=== PATIENT | female | born 1950 | race Caucasian/White ===

== ENCOUNTER 2019-03-16 02:40 | Inpatient (IN) | payer MEDICARE, OTHER ==
[2019-03-16] VITALS (10 sets, daily range): BP systolic 112–146; BP diastolic 60–92
[~2019-03-16] VITALS: Ht 167.6 cm; Wt 91.5 kg
[2019-03-16] MEDS ORDERED: STEMI BOX INJ NR (03:15)
[2019-03-16 03:17] LABS: EOSINOPHILS # (AUTO) 0.1 X10'3 (0-0.9); MEAN PLATELET VOLUME 11.2 FL (7.4-10.4); MONOCYTES # (AUTO) 0.7 X10'3 (0-0.9); MONOCYTES % (AUTO) 5.2 % (2-12); WHITE BLOOD COUNT 12.5 X10'3 (4.5-11.0)
[2019-03-16 03:19] LABS: BASOPHILS % (AUTO) 0.3 % (0-1); EOSINOPHILS % (AUTO) 0.6 % (0-6); HEMATOCRIT 44.3 % (35.0-45.0); HEMOGLOBIN 15.3 g/dl (12.0-16.0); LYMPHOCYTES # (AUTO) 3.1 X10'3 (1.1-4.8); LYMPHOCYTES % (AUTO) 24.4 % (21-51); MEAN CORPUSCULAR HEMOGLOBIN 30.4 PG (27.0-31.0); MEAN CORPUSCULAR HGB CONC 34.6 g/dL (33.0-36.5); MEAN CORPUSCULAR VOLUME 87.9 FL (78-98); NEUTROPHILS # (AUTO) 8.7 X10'3 (1.8-7.7); NEUTROPHILS % (AUTO) 69.5 % (42-75); PLATELET COUNT 253 X10'3 (140-440); RED BLOOD COUNT 5.04 X10'6 (4.20-5.60); RED CELL DISTRIBUTION WIDTH 14.1 % (11.5-14.5)
[2019-03-16] MEDS ORDERED: heparin 25,000 UNIT/250ml bag 250 ML IV SCH (03:28)
[2019-03-16 03:30] LABS: ALBUMIN 3.7 G/DL (3.4-5.0); ANION GAP 12 (8-16); BILIRUBIN,TOTAL 0.5 MG/DL (0.1-1.0); BLOOD UREA NITROGEN 12 MG/DL (7-18); BUN/CREATININE RATIO 12.8 (6.6-38.0); CALCIUM 9.9 MG/DL (8.5-10.1); CHLORIDE 97 MMOL/L (99-107); CREATININE 0.94 MG/DL (0.40-0.90); GLUCOSE 258 MG/DL (70-104); PARTIAL THROMBOPLASTIN TIME 54 SECONDS (22-32); POTASSIUM 3.4 MMOL/L (3.5-5.1); SODIUM 135 MMOL/L (135-145); TOTAL CARBON DIOXIDE 26.3 MMOL/L (24-32); TOTAL PROTEIN 8.6 G/DL (6.4-8.2); eGFR 60 ML/MIN
[2019-03-16] MEDS ORDERED: nitroGLYCERIN-Tridil 50MG/D5W 250 ML IV ONE (03:30)
[2019-03-16] MEDS ORDERED: heparin 10,000 units/1 ML INJ IV ONE ×2 (03:30→04:00)
[2019-03-16] MEDS ORDERED: heparin 10,000 units/1 ML INJ IV PRN ×2 (03:30→04:00)
[2019-03-16 03:31] LABS: ALANINE AMINOTRANSFERASE 80 U/L (12-78); ALBUMIN/GLOBULIN RATIO 0.8 (1.1-1.5); ALKALINE PHOSPHATASE 119 IU/L (46-116); ASPARTATE AMINO TRANSFERASE 42 U/L (10-37)
--- NOTE | 2019-03-16 03:34 | NUR ---
NON ADMIN OF HEPARIN BOLUS DUE TO PT RECEIVING AT [facility] BEFORE ARRIVAL.
[2019-03-16 03:40] LABS: TROPONIN I 0.94 NG/ML (0.0-0.05)
[2019-03-16 03:43] LABS: LARGE PLATELETS MODERATE; PLATELET ESTIMATE NORMAL
[2019-03-16] MEDS: heparin 25,000 UNIT/250ml bag 250 ML IV SCH ×2 (03:59→10:50)
[2019-03-16] MEDS ORDERED: magnesium 4gm in 100ml NS 100 ML IV PRN ×2 (04:00→07:10)
[2019-03-16] MEDS ORDERED: magnesium hydroxide 30ml (MOM) UD suspension PO PRN (04:00)
[2019-03-16] MEDS ORDERED: magnesium Cl slow-release 64mg tablet PO PRN ×2 (04:00→07:10)
[2019-03-16] MEDS ORDERED: ondansetron/PF 4mg/2ml inj IV PRN ×2 (04:00→14:00)
[2019-03-16] MEDS ORDERED: potassium Cl 20 mEq SR tablet PO PRN ×3 (04:00→07:10)
[2019-03-16] MEDS ORDERED: acetaminophen 325mg tablet PO PRN (04:00)
[2019-03-16] MEDS ORDERED: potassium CL 10mEq/100ml bag 100 ML IV PRN ×3 (04:00→07:10)
[2019-03-16] MEDS ORDERED: mag hydrox/Alum hydrox/simeth 30ml oral suspension PO PRN (04:00)
[2019-03-16] MEDS ORDERED: magnesium 2GM in 50ml NS 50 ML IV PRN (04:00)
[2019-03-16] MEDS ORDERED: glucagon, human recombinant 1mg kit SUBCUT PRN ×2 (04:30→14:40)
[2019-03-16] MEDS ORDERED: insulin Lispro (HumaLOG) vial - multi-dose SQ SCH ×2 (04:30→14:40)
[2019-03-16] MEDS ORDERED: dextrose 50%-water 50ml dispensing syringe IV PRN ×5 (04:30→14:40)
[2019-03-16] MEDS ORDERED: MESSAGE TO PHARMACY PO ONE ×2 (04:30→14:40)
[2019-03-16] MEDS ORDERED: dextrose ORAL solution 15 GM/59 ML bottle PO PRN ×4 (04:30→14:40)
--- NOTE | 2019-03-16 04:30 | NUR ---
Patient in room PCU 3013. I have received report from Yazmin SARABIA and had the opportunity to ask questions and assume patient care.
--- NOTE | 2019-03-16 04:45 | NUR ---
Patient arrived to room 3013B from the ER via gurney with at bedside and all belongings on person. Patient oriented to call light, room, plan of care and all questions answered. Nitro gtt @ 5mcg/hr, and Heparin gtt at 1000units/hr. Patient currently chest pain free at the moment. Vital signs stable and tele monitor put on. Will continue to monitor.
--- NOTE | 2019-03-16 06:05 | NUR ---
Problems reprioritized. Patient report given, questions answered & plan of care reviewed with Sherri SARABIA.
--- NOTE | 2019-03-16 06:35 | NUR ---
Patient in room PCU 3013. I have received report from Tess SARABIA and had the opportunity to ask questions and assume patient care. Heparin gtt running at 1,000 u/hr and Nitro gtt running at 5 mcg with BP 115/74, pt denies chest pain at this time. Will continue to monitor.
[2019-03-16] MEDS ORDERED: nitroGLYCERIN 0.4mg/hour patch TD ONE (06:50)
[2019-03-16 07:06] LABS: HEMOGLOBIN A1C 8.5 % (4.5-6.2)
[2019-03-16 07:09] LABS: CHOLESTEROL 256 MG/DL (0-200); HDL CHOLESTEROL 35 MG/DL (35-60)
[2019-03-16 07:10] LABS: CHOL/HDL RATIO 7.3 (0.00-4.99); LDL CHOLESTEROL 179 MG/DL (50-100); TRIGLYCERIDES 281 MG/DL (20-135)
--- NOTE | 2019-03-16 07:25 | NUR ---
PAGER ID: [phone] MESSAGE: [id number] Alejandro Amin Pt 3hr trop is 2.22 up from 0.94, Heparin gtt running, Candice Vega CYLINDER TESTER is aware. Thank you, Sherri [phone]
[2019-03-16] MEDS ORDERED: papaverine 30 mg/ml 2ml inj. ONE (08:00)
[2019-03-16] MEDS ORDERED: K and/or MAG REPLACEMENT MC SCH (08:00)
[2019-03-16] MEDS ORDERED: aspirin 81mg tab.chew PO SCH (08:30)
[2019-03-16] MEDS: tirofiban 5mg in NS 100mL 100 ML IV SCH ×2 (08:35→11:40)
[2019-03-16] MEDS: metoprolol tartrate 12.5mg (1/2 tablet) PO SCH ×2 (08:38→23:33)
[2019-03-16] MEDS: potassium Cl 20 mEq SR tablet PO PRN ×2 (08:39→18:09)
[2019-03-16] MEDS ORDERED: NOVRI SQ (10:07)
[2019-03-16] MEDS ORDERED: NPH,100V2 SQ ×2 (10:08→10:10)
[2019-03-16] MEDS ORDERED: HYDR25TA4 PO (10:10)
[2019-03-16] MEDS ORDERED: AMIT-189 PO (10:11)
[2019-03-16] MEDS ORDERED: AMLO2.5T2 PO (10:11)
[2019-03-16] MEDS ORDERED: METF500T PO (10:12)
[2019-03-16] MEDS ORDERED: GLIM4TAB4 PO (10:12)
[2019-03-16 10:25] LABS: MAGNESIUM 1.9 MG/DL (1.5-2.4)
--- NOTE | 2019-03-16 10:32 | NUR ---
PAGER ID: [phone] MESSAGE: [id number] Alejandro Amin Pt 6hour trop is now 3.26 up from 2.22. Thank you, Sherri #[phone]
[2019-03-16] MEDS: normal saline 1000ml 1,000 ML IV SCH ×3 (11:54→23:53)
[2019-03-16] MEDS ORDERED: midazolam 2 mg/2 ml injection ONE (12:33)
[2019-03-16] MEDS ORDERED: iohexol 350MG/ML 100ml bottle IV ONE (12:33)
[2019-03-16] MEDS ORDERED: LIDOcaine 1% (10mg/ml)w/preservative injection 20ml MDV ONE (12:33)
[2019-03-16] MEDS ORDERED: fentaNYL/PF 50MCG/1 ML 2ML syringe ONE (12:33)
--- NOTE | 2019-03-16 13:03 | NUR ---
pt transferred to Sales Development Director with [facility]
--- NOTE | 2019-03-16 13:45 | NUR ---
PT. RETURNED FROM [facility]. REPORT RECEIVED. PT. IS COMFORTABLY LAYING FLAT IN BED. VS OBTAINED AND ARE STABLE. DRESSING ON R FEMORAL ARTERY IS CLEAN, DRY, INTACT. SKIN AROUND SITE IS SOFT AND COLORATION IS NORMAL.
[2019-03-16] MEDS ORDERED: HYDROcodone/acetaminophen 5mg/325mg tablet PO PRN ×2 (14:00→14:15)
[2019-03-16] MEDS ORDERED: OXAZEpam 15mg capsule PO PRN (14:00)
[2019-03-16] MEDS ORDERED: HYDROcodone/acetaminophen 10/325mg tab PO PRN (14:15)
[2019-03-16] MEDS ORDERED: proCHLORperazine 10 MG/2 ml inj IV PRN (14:15)
[2019-03-16] MEDS ORDERED: insulin glargine (Lantus) pen - multi-dose SQ PRN (14:40)
[2019-03-16] MEDS ORDERED: MESSAGE TO NURSING PO ONE ×4 (14:40)
[2019-03-16] MEDS ORDERED: ringers solution, lacted 1,000 ML IV ONE (14:58)
--- NOTE | 2019-03-16 16:18 | NUR ---
DM consult: Pt with A1c 8.5 seen at bedside with SO present. Pt reports seeing an MD q 1 month or q 6 months, takes her meds per rx, and checks her BG levels in the morning with resulting numbers 85-130. Pt reports her biggest obstacle is monitoring CHO intake. Pt reports usual PO intake is two meals/day. Pt provided with written and verbal DM ed with referral to outpatient DM class. Noted that pt with elevated lipid panel with TG 281, CHOL 256, LDL 179, HDL WNL. Pt provided with written and verbal heart healthy education and RD contact information. Pt reports she's pending 4 way stenting. Pt provided with verbal protein and wound healing education. Will follow up post-op and monitor need for written education and additional protein. Pt denies any food allergies, difficulty chewing/swallowing, or constipation/diarrhea. LBM 03/15. Will continue to follow. Recommendations: 1) Continues heart healthy CHO controlled diet 2) Monitor need for f/u written protein education and ONS post-op 3) Antihyperlipidemic per MD approval given elevated lipid panel 4) Wt per rx Addendum: 03/16/19 at [address] Amended: Links added.
[2019-03-16 16:26] LABS: EOSINOPHILS # (AUTO) 0.2 X10'3 (0-0.9); EOSINOPHILS % (AUTO) 1.7 % (0-6); HEMOGLOBIN 14.4 g/dl (12.0-16.0); MEAN CORPUSCULAR HEMOGLOBIN 30.6 PG (27.0-31.0); MONOCYTES # (AUTO) 0.7 X10'3 (0-0.9)
[2019-03-16 16:27] LABS: BASOPHILS % (AUTO) 0.3 % (0-1); HEMATOCRIT 42.6 % (35.0-45.0); LYMPHOCYTES # (AUTO) 3.7 X10'3 (1.1-4.8); LYMPHOCYTES % (AUTO) 37.7 % (21-51); MEAN CORPUSCULAR HGB CONC 33.8 g/dL (33.0-36.5); MEAN CORPUSCULAR VOLUME 90.5 FL (78-98); MEAN PLATELET VOLUME 11.7 FL (7.4-10.4); MONOCYTES % (AUTO) 6.7 % (2-12); NEUTROPHILS # (AUTO) 5.3 X10'3 (1.8-7.7); NEUTROPHILS % (AUTO) 53.6 % (42-75); PLATELET COUNT 241 X10'3 (140-440); RED BLOOD COUNT 4.71 X10'6 (4.20-5.60); WHITE BLOOD COUNT 9.9 X10'3 (4.5-11.0)
[2019-03-16 16:42] LABS: ALBUMIN 3.4 G/DL (3.4-5.0); ANION GAP 8 (8-16); BLOOD UREA NITROGEN 13 MG/DL (7-18); BUN/CREATININE RATIO 16.5 (6.6-38.0); CALCIUM 9.2 MG/DL (8.5-10.1); CHLORIDE 100 MMOL/L (99-107); CHOL/HDL RATIO 7.8 (0.00-4.99); CHOLESTEROL 257 MG/DL (0-200); CREATINE KINASE 166 U/L (26-192); CREATININE 0.79 MG/DL (0.40-0.90); GLUCOSE 168 MG/DL (70-104); HDL CHOLESTEROL 33 MG/DL (35-60); LDL CHOLESTEROL 173 MG/DL (50-100); POTASSIUM 3.1 MMOL/L (3.5-5.1); SODIUM 136 MMOL/L (135-145); TOTAL CARBON DIOXIDE 28.2 MMOL/L (24-32); TRIGLYCERIDES 372 MG/DL (20-135); eGFR 73 ML/MIN
--- NOTE | 2019-03-16 16:50 | NUR ---
PAGER ID: [phone] MESSAGE: [id number] Alejandro Amin Critical 12hour troponin of 4.83. Pricilla has consulted, CABG tomorrow. Thank you, Sherri#[phone]
--- NOTE | 2019-03-16 18:41 | NUR ---
Problems reprioritized. Patient report given, questions answered & plan of care reviewed with Lulu SARABIA.
--- NOTE | 2019-03-16 18:58 | NUR ---
Patient in room U 3013. I have received report from David Small's and had the opportunity to ask questions and assume patient care. Addendum: 03/16/19 at 1859 by Lulu Gilmore RN Amended: Links added.
[2019-03-16] MEDS ORDERED: metoprolol tartrate 12.5mg (1/2 tablet) PO SCH (20:00)
[2019-03-16] MEDS ORDERED: mupirocin 2% nasal ointment 1gm UD NS SCH (20:00)
[2019-03-16 20:36] LABS: ABG BASE EXCESS 1.4 mmol/L (-2.0-3.0); ABG HCO3 25.4 mmol/L (22.0-26.0); ABG OXYGEN SATURATION 93.8 % (95-98); ABG PCO2 (T) 38.4 mmHg (32.0-45.0); ABG PH (T) 7.439 (7.350-7.450); ABG PO2 (T) 68.6 mmHg (83-108); ALLEN'S TEST Positive; FCOHb 0.7 % (0.5-1.5); FMetHb 0.2 % (0.3-1.12); TOTAL HEMOGLOBIN 15.2 G/dl (12.0-16.0)
[2019-03-16] MEDS ORDERED: pravastatin 10mg tablet PO SCH (21:00)
[2019-03-16] MEDS ORDERED: pravastatin 40mg tablet PO SCH (21:00)
[2019-03-16] MEDS ORDERED: insulin glargine (Lantus) pen - multi-dose SQ SCH ×2 (21:00)
--- NOTE | 2019-03-16 21:00 | NUR ---
Patient in room MED 311. I have received report from Brandy RN PCU Unit and had the opportunity to ask questions and assume patient care.
--- NOTE | 2019-03-16 21:08 | NUR ---
Problems reprioritized. Patient report given, questions answered & plan of care reviewed with Herminia Small. Addendum: 03/16/19 at 2109 by Lulu Gilmore RN Amended: Links added.
--- NOTE | 2019-03-16 21:21 | NUR ---
Juany Small took pt overv to 311 with her meds to be given. report already called to Herminia Small and pt arrived to 311 at this time with her meds and belongings.
[2019-03-16] MEDS ORDERED: albuterol 2.5 MG/3 ML nebule NEB ONE (22:00)
[2019-03-17] VITALS (16 sets, daily range): BP systolic 93–165; BP diastolic 46–82
[2019-03-17] MEDS ORDERED: ROPIVAcaine 0.5% (5mg/ml) 30ml vial ONE (05:32)
[2019-03-17 05:36] LABS: ALANINE AMINOTRANSFERASE 63 U/L (12-78); ALBUMIN 3.3 G/DL (3.4-5.0); ALBUMIN/GLOBULIN RATIO 0.8 (1.1-1.5); ALKALINE PHOSPHATASE 99 IU/L (46-116); ANION GAP 11 (8-16); ASPARTATE AMINO TRANSFERASE 45 U/L (10-37); BILIRUBIN,TOTAL 0.6 MG/DL (0.1-1.0); BLOOD UREA NITROGEN 12 MG/DL (7-18); BUN/CREATININE RATIO 14.8 (6.6-38.0); CHLORIDE 102 MMOL/L (99-107); CREATININE 0.81 MG/DL (0.40-0.90); GLUCOSE 223 MG/DL (70-104); MAGNESIUM 1.9 MG/DL (1.5-2.4); POTASSIUM 3.4 MMOL/L (3.5-5.1); SODIUM 138 MMOL/L (135-145); TOTAL CARBON DIOXIDE 25.3 MMOL/L (24-32); TOTAL PROTEIN 7.5 G/DL (6.4-8.2); eGFR 71 ML/MIN
[2019-03-17 05:45] LABS: BASOPHILS # (AUTO) 0.1 X10'3 (0-0.2); EOSINOPHILS # (AUTO) 0.2 X10'3 (0-0.9); EOSINOPHILS % (AUTO) 2.3 % (0-6); HEMOGLOBIN 13.8 g/dl (12.0-16.0); LYMPHOCYTES # (AUTO) 2.7 X10'3 (1.1-4.8); LYMPHOCYTES % (AUTO) 29.4 % (21-51); MEAN CORPUSCULAR HEMOGLOBIN 30.6 PG (27.0-31.0); MEAN CORPUSCULAR HGB CONC 33.6 g/dL (33.0-36.5); MEAN PLATELET VOLUME 11.5 FL (7.4-10.4); MONOCYTES # (AUTO) 0.7 X10'3 (0-0.9); MONOCYTES % (AUTO) 7.2 % (2-12); NEUTROPHILS # (AUTO) 5.6 X10'3 (1.8-7.7); NEUTROPHILS % (AUTO) 60.1 % (42-75); PLATELET COUNT 197 X10'3 (140-440); RED CELL DISTRIBUTION WIDTH 14.2 % (11.5-14.5); WHITE BLOOD COUNT 9.3 X10'3 (4.5-11.0)
[2019-03-17] MEDS ORDERED: papaverine 30 mg/ml 2ml inj. IA ONE (06:00)
[2019-03-17] MEDS ORDERED: famotidine 20mg tablet PO ONE (06:00)
[2019-03-17] MEDS ORDERED: LORazepam 2 mg/ml vial IV ONE (06:00)
[2019-03-17] MEDS ORDERED: heparin 10,000 units/1 ML INJ IR ONE (06:00)
--- NOTE | 2019-03-17 06:40 | NUR ---
AIDAN FROM PRE OP INSTRUCTED RN TO GIVE 12.5 LOPRESSOR IF ORDERED FOR THIS MORNING AND APPROPRIATE
--- NOTE | 2019-03-17 06:45 | NUR ---
Report given to Concepcion SARABIA.
--- NOTE | 2019-03-17 06:50 | NUR ---
INSTRUCTED BY DR. DECKER TO GIVE 2 UNITS OF LISPRO FOR BLOOD GLUCOSE OF 207
[2019-03-17] MEDS: metoprolol tartrate 12.5mg (1/2 tablet) PO SCH (06:51)
[2019-03-17] MEDS ORDERED: GLIP10TA11 PO (06:55)
[2019-03-17] MEDS ORDERED: LOSA50TA64 PO (06:55)
[2019-03-17] MEDS ORDERED: protamine sulf. 10mg/ml inj. IV ONE (07:19)
[2019-03-17] MEDS ORDERED: DOPamine/D5W 400mg/250ml bag IV ONE (07:19)
[2019-03-17] MEDS ORDERED: nitroGLYCERIN in D5W 50mg/250ml (Tridil) infusion IV ONE (07:19)
[2019-03-17] MEDS ORDERED: isoflurane 100ml inhalation liquid IH ONE (07:19)
[2019-03-17] MEDS ORDERED: SUFENTANIL CITRATE 50 MCG/ML 2ml ampule IV ONE (07:21)
[2019-03-17] MEDS ORDERED: midazolam 2 mg/2 ml injection ONE (07:22)
[2019-03-17 07:41] LABS: LARGE PLATELETS FEW; PLATELET ESTIMATE NORMAL
[2019-03-17] MEDS ORDERED: insulin regular, human 100 UNIT in normal saline 100ml IV soln 100 ML IV SCH ×2 (08:00)
[2019-03-17] MEDS ORDERED: vancomycin/NS 1 GM ADD-VANTAGE 250 ML IV ONE (08:00)
[2019-03-17] MEDS ORDERED: cefazolin/dext.iso 2gm/100ml 100 ML IV ONE (08:00)
[2019-03-17] MEDS ORDERED: NUT.TX.IMPAIRED DIGEST FXN (Ensure Clear) 237 ML PO ONE (08:00)
[2019-03-17] MEDS ORDERED: gabapentin 400mg capsule PO ONE (08:00)
[2019-03-17 08:01] LABS: ABG BASE EXCESS 0.6 mmol/L (-2.0-3.0); ABG HCO3 23.4 mmol/L (22.0-26.0); ABG OXYGEN SATURATION 99.7 % (95-98); ABG PCO2 32.1 mmHg (35.0-45.0); ABG PO2 319.9 mmHg (60.0-100.0); CL (ABG) 101 mmol/L (99-107); FCOHb 0.9 % (0.5-1.5); FMetHb 0.4 % (0.3-1.12); FO2Hb 98.4 % (94-100); GLUCOSE (ABG) 237 mg/dl (70-105); IONIZED CA (ABG) 1.09 mmol/L (1.03-1.32); K (ABG) 3.4 mmol/L (3.3-5.1); NA (ABG) 135 mmol/L (135-145); TOTAL HEMOGLOBIN 13.2 G/dl (12.0-16.0)
[2019-03-17 08:46] LABS: ABG BASE EXCESS VENOUS -0.2 mmol/L; ABG HCO3 VENOUS 25.5 mmol/L; ABG PCO2 VENOUS 45.4 mmHg; ABG PO2 VENOUS 45.9 mmHg; CL (ABG) 99 mmol/L (99-107); FCOHb VENOUS 1.1 %; FHHb VENOUS 20.6 %; FMetHb VENOUS 0.3 %; GLUCOSE (ABG) 256 mg/dl (70-105); K (ABG) 3.5 mmol/L (3.3-5.1); NA (ABG) 135 mmol/L (135-145)
[2019-03-17 09:16] LABS: ABG BASE EXCESS -1.7 mmol/L (-2.0-3.0); ABG HCO3 22.7 mmol/L (22.0-26.0); ABG OXYGEN SATURATION 99.4 % (95-98); ABG PCO2 37.3 mmHg (35.0-45.0); ABG PH 7.403 (7.350-7.450); ABG PO2 423.8 mmHg (60.0-100.0); CL (ABG) 100 mmol/L (99-107); FCOHb 0.4 % (0.5-1.5); FMetHb 0.2 % (0.3-1.12); FO2Hb 98.8 % (94-100); GLUCOSE (ABG) 160 mg/dl (70-105); IONIZED CA (ABG) 0.98 mmol/L (1.03-1.32); K (ABG) 4.6 mmol/L (3.3-5.1); NA (ABG) 134 mmol/L (135-145); TOTAL HEMOGLOBIN 9.6 G/dl (12.0-16.0)
[2019-03-17 09:21] LABS: ABG BASE EXCESS VENOUS -1.4 mmol/L; ABG PCO2 VENOUS 43.1 mmHg; ABG PO2 VENOUS 52.2 mmHg; CL (ABG) 100 mmol/L (99-107); FCOHb VENOUS 1.2 %; FHHb VENOUS 14.6 %; FMetHb VENOUS 0.3 %; FO2Hb VENOUS 83.9 %; GLUCOSE (ABG) 156 mg/dl (70-105); IONIZED CA (ABG) 0.98 mmol/L (1.03-1.32); K (ABG) 4.1 mmol/L (3.3-5.1); NA (ABG) 134 mmol/L (135-145); TOTAL HEMOGLOBIN 9.3 G/dl (12.0-16.0)
[2019-03-17 09:40] LABS: ABG BASE EXCESS -0.2 mmol/L (-2.0-3.0); ABG HCO3 24.9 mmol/L (22.0-26.0); ABG OXYGEN SATURATION 99.7 % (95-98); ABG PCO2 42.5 mmHg (35.0-45.0); ABG PH 7.385 (7.350-7.450); ABG PO2 447.1 mmHg (60.0-100.0); CL (ABG) 101 mmol/L (99-107); FCOHb 1.1 % (0.5-1.5); FO2Hb 98.6 % (94-100); GLUCOSE (ABG) 124 mg/dl (70-105); IONIZED CA (ABG) 0.93 mmol/L (1.03-1.32); K (ABG) 4.2 mmol/L (3.3-5.1); NA (ABG) 133 mmol/L (135-145); TOTAL HEMOGLOBIN 8.6 G/dl (12.0-16.0)
[2019-03-17] MEDS ORDERED: MESSAGE TO NURSING PO ONE (10:00)
[2019-03-17 10:06] LABS: ABG HCO3 26.2 mmol/L (22.0-26.0); ABG OXYGEN SATURATION 99.2 % (95-98); ABG PCO2 38.9 mmHg (35.0-45.0); ABG PH 7.446 (7.350-7.450); CL (ABG) 99 mmol/L (99-107); FMetHb 0.8 % (0.3-1.12); FO2Hb 97.4 % (94-100); GLUCOSE (ABG) 85 mg/dl (70-105); IONIZED CA (ABG) 1.15 mmol/L (1.03-1.32); K (ABG) 4.4 mmol/L (3.3-5.1); NA (ABG) 131 mmol/L (135-145)
[2019-03-17] MEDS ORDERED: propofol inj 20 ML IV ONE (10:37)
[2019-03-17] MEDS ORDERED: acetaminophen 1,000mg/100ml IV 100 ML IV ONE (10:37)
[2019-03-17] MEDS ORDERED: phenylephrine 10mg/ml inj. ONE (10:37)
[2019-03-17] MEDS ORDERED: LIDOcaine 2% (20mg/ml) 5ml vial ONE (10:37)
[2019-03-17] MEDS ORDERED: etomidate 2mg/ml inj. ONE (10:37)
[2019-03-17] MEDS ORDERED: rocuronium 10mg/ml inj IV ONE (10:37)
[2019-03-17 10:50] LABS: ABG BASE EXCESS VENOUS 0.6 mmol/L; ABG HCO3 VENOUS 25.7 mmol/L; ABG PCO2 VENOUS 43.6 mmHg; ABG PO2 VENOUS 35.1 mmHg; CL (ABG) 101 mmol/L (99-107); FCOHb VENOUS 0.6 %; FHHb VENOUS 36.2 %; FMetHb VENOUS 0.6 %; FO2Hb VENOUS 62.6 %; GLUCOSE (ABG) 82 mg/dl (70-105); IONIZED CA (ABG) 1.12 mmol/L (1.03-1.32); K (ABG) 4.3 mmol/L (3.3-5.1); NA (ABG) 135 mmol/L (135-145); TOTAL HEMOGLOBIN 10.2 G/dl (12.0-16.0)
[2019-03-17] MEDS ORDERED: niCARDipine-NS 40mg/200ml IVPB 200 ML IV PRN (11:11)
[2019-03-17] MEDS ORDERED: sodium chloride 0.45% 1,000 ML IV SCH (11:11)
[2019-03-17] MEDS ORDERED: nitroGLYCERIN-Tridil 50MG/D5W 250 ML IV PRN (11:11)
[2019-03-17] MEDS ORDERED: DOPamine 400mg/D5W 250ml 250 ML IV PRN (11:11)
[2019-03-17] MEDS ORDERED: insulin regular, human inj. 100 UNITS in normal saline 100ml IV soln 100 ML IV SCH ×2 (11:15)
[2019-03-17] MEDS ORDERED: pantoprazole 40 MG vial IV ONE (11:15)
[2019-03-17] MEDS ORDERED: sodium phosphate inj. 30 MMOL in dextrose 5%-water 250 ML IV PRN (11:15)
[2019-03-17] MEDS ORDERED: morphine 4 MG/ML inj SYRINge IV PRN (11:15)
[2019-03-17] MEDS ORDERED: magnesium 2GM in 50ml NS 50 ML IV PRN (11:15)
[2019-03-17] MEDS ORDERED: potassium Cl 20 mEq SR tablet PO PRN (11:15)
[2019-03-17] MEDS ORDERED: normal saline 250ml IV soln 250 ML IV PRN (11:15)
[2019-03-17] MEDS ORDERED: albumin (Human) 5% 250ml 250 ML IV PRN (11:15)
[2019-03-17] MEDS ORDERED: dextrose 50%-water 50ml dispensing syringe IV PRN (11:15)
[2019-03-17] MEDS ORDERED: ondansetron/PF 4mg/2ml inj IV PRN (11:15)
[2019-03-17] MEDS ORDERED: Neutra Phos packet PO PRN (11:15)
[2019-03-17] MEDS ORDERED: acetaminophen 325mg tablet PO PRN (11:15)
[2019-03-17] MEDS ORDERED: metoclopramide 5 mg/ml inj IV PRN (11:15)
[2019-03-17] MEDS ORDERED: sodium phosphate inj. 15 MMOL in dextrose 5%-water 150 ML IV PRN (11:15)
[2019-03-17] MEDS ORDERED: HYDROcodone/acetaminophen 10/325mg tab PO PRN (11:15)
[2019-03-17] MEDS ORDERED: magnesium 4gm in 100ml NS 100 ML IV PRN (11:15)
[2019-03-17] MEDS: insulin regular, human 100 UNIT in normal saline 100ml IV soln 100 ML IV SCH ×2 (11:24)
[2019-03-17] MEDS ORDERED: ESOMEPRAZOLE 40 MG VIAL IV ONE (11:25)
--- NOTE | 2019-03-17 11:30 | NUR ---
Received to room [], accompanied by MDs [] and surgical crew. Placed on ventilator, to fence erector supervisor, arterial line and PA line pressure monitored. Chest tubes to suction at 20 cm. Laguna cath to gravity drainage. Dressings are dry and intact. See assessment record. All vasoactive drugs are infusing via central line.
[2019-03-17] MEDS: ipratropium/albuterol 3ml nebule IH PRN ×2 (11:44→13:19)
[2019-03-17 11:45] LABS: ABG BASE EXCESS -0.2 mmol/L (-2.0-3.0); ABG HCO3 23.7 mmol/L (22.0-26.0); ABG OXYGEN SATURATION 90.3 % (95-98); ABG PCO2 (T) 35.6 mmHg (32.0-45.0); ABG PH (T) 7.439 (7.350-7.450); ABG PO2 (T) 56.2 mmHg (83-108); FCOHb 0.3 % (0.5-1.5); FMetHb 0.2 % (0.3-1.12); FO2Hb 89.8 % (94-100); MINUTE VOLUME 8 L/min; PATIENT TEMPERATURE 36.5; PEEP 5 cm H2O; RESPIRATORY RATE 12 b/min; TIDAL VOLUME 600 mL; TOTAL HEMOGLOBIN 12.9 G/dl (12.0-16.0)
[2019-03-17 12:02] LABS: BASOPHILS % (AUTO) 0.1 % (0-1); EOSINOPHILS # (AUTO) 0.1 X10'3 (0-0.9); EOSINOPHILS % (AUTO) 0.4 % (0-6); HEMATOCRIT 35.3 % (35.0-45.0); HEMOGLOBIN 11.9 g/dl (12.0-16.0); LYMPHOCYTES # (AUTO) 1.9 X10'3 (1.1-4.8); LYMPHOCYTES % (AUTO) 9.2 % (21-51); MEAN CORPUSCULAR HEMOGLOBIN 30.6 PG (27.0-31.0); MEAN CORPUSCULAR HGB CONC 33.8 g/dL (33.0-36.5); MEAN CORPUSCULAR VOLUME 90.7 FL (78-98); MEAN PLATELET VOLUME 10.8 FL (7.4-10.4); MONOCYTES % (AUTO) 4.6 % (2-12); NEUTROPHILS # (AUTO) 17.8 X10'3 (1.8-7.7); NEUTROPHILS % (AUTO) 85.7 % (42-75); PLATELET COUNT 143 X10'3 (140-440); RED BLOOD COUNT 3.89 X10'6 (4.20-5.60); RED CELL DISTRIBUTION WIDTH 14.3 % (11.5-14.5); WHITE BLOOD COUNT 20.8 X10'3 (4.5-11.0)
[2019-03-17 12:04] LABS: ALANINE AMINOTRANSFERASE 45 U/L (12-78); ALBUMIN 2.6 G/DL (3.4-5.0); ALKALINE PHOSPHATASE 65 IU/L (46-116); ANION GAP 8 (8-16); ASPARTATE AMINO TRANSFERASE 43 U/L (10-37); BLOOD UREA NITROGEN 11 MG/DL (7-18); BUN/CREATININE RATIO 13.1 (6.6-38.0); CALCIUM 8.5 MG/DL (8.5-10.1); CHLORIDE 107 MMOL/L (99-107); CREATININE 0.84 MG/DL (0.40-0.90); GLUCOSE 160 MG/DL (70-104); POTASSIUM 4.1 MMOL/L (3.5-5.1); SODIUM 142 MMOL/L (135-145); TOTAL CARBON DIOXIDE 26.6 MMOL/L (24-32); TOTAL PROTEIN 5.3 G/DL (6.4-8.2); eGFR 68 ML/MIN
[2019-03-17 12:06] LABS: PARTIAL THROMBOPLASTIN TIME 26 SECONDS (22-32)
[2019-03-17 12:10] LABS: MAGNESIUM 2.3 MG/DL (1.5-2.4)
[2019-03-17 12:12] LABS: PHOSPHORUS 1.1 MG/DL (2.3-4.5)
--- NOTE | 2019-03-17 12:18 | NUR ---
Nutrition consult: Pt s/p CABG x 4 today. Pt already provided with verbal protein education prior to operation. Will continue to follow and monitor need for written education and ONS with diet advancement once pt stable, alert, and oriented. Addendum: 03/17/19 at [address] Amended: Links added.
[2019-03-17] MEDS: morphine 4 MG/ML inj SYRINge IV PRN ×4 (12:47→20:11)
[2019-03-17 12:53] LABS: TOTAL CELLS COUNTED 100
[2019-03-17 12:54] LABS: LARGE PLATELETS FEW; PLATELET ESTIMATE NORMAL; STOMATOCYTES 1+
[2019-03-17] MEDS: gabapentin 300mg capsule PO SCH ×2 (13:00→20:19)
[2019-03-17] MEDS: insulin Lispro (HumaLOG) vial - multi-dose SQ SCH ×4 (13:00→23:10)
[2019-03-17] MEDS: potassium Cl 20mEq/100mL bag 100 ML IV PRN ×3 (13:16→21:32)
--- NOTE | 2019-03-17 15:00 | NUR ---
PT SITS UP ON OCC, DOESNT OPEN EYES, MS X 2. BRIEF EPISODE OF SBP TO 80'S- CVP 5- 150 CC NS GIVEN ALOMG WITH 5% ALBUMIN- EFFECTIVE FOR BP. REPLACING- K MG PHOS
[2019-03-17 16:06] LABS: ABG BASE EXCESS -3.6 mmol/L (-2.0-3.0); ABG HCO3 21.8 mmol/L (22.0-26.0); ABG OXYGEN SATURATION 94.8 % (95-98); ABG PCO2 (T) 41.5 mmHg (32.0-45.0); ABG PO2 (T) 80.1 mmHg (83-108); FCOHb 0.3 % (0.5-1.5); FMetHb 0.3 % (0.3-1.12); FO2Hb 94.2 % (94-100); MINUTE VOLUME 8 L/min; PATIENT TEMPERATURE 37.3; PEEP 5 cm H2O; RESPIRATORY RATE 12 b/min; TIDAL VOLUME 600 mL; TOTAL HEMOGLOBIN 13.1 G/dl (12.0-16.0)
[2019-03-17] MEDS: ceFAZolin 1GM/D5W- ADD-VANTAGE 50 ML IV SCH ×2 (16:53→23:54)
[2019-03-17 18:07] LABS: BASOPHILS % (AUTO) 0.1 % (0-1); EOSINOPHILS % (AUTO) 0 % (0-6); HEMATOCRIT 36.3 % (35.0-45.0); HEMOGLOBIN 12.3 g/dl (12.0-16.0); LYMPHOCYTES # (AUTO) 0.9 X10'3 (1.1-4.8); MEAN CORPUSCULAR HEMOGLOBIN 30.1 PG (27.0-31.0); MEAN CORPUSCULAR HGB CONC 33.8 g/dL (33.0-36.5); MEAN PLATELET VOLUME 10.9 FL (7.4-10.4); MONOCYTES # (AUTO) 0.5 X10'3 (0-0.9); MONOCYTES % (AUTO) 2.9 % (2-12); NEUTROPHILS # (AUTO) 16.4 X10'3 (1.8-7.7); PLATELET COUNT 130 X10'3 (140-440); RED BLOOD COUNT 4.08 X10'6 (4.20-5.60); RED CELL DISTRIBUTION WIDTH 14.2 % (11.5-14.5); WHITE BLOOD COUNT 17.8 X10'3 (4.5-11.0)
[2019-03-17 18:16] LABS: ALBUMIN 3.3 G/DL (3.4-5.0); ANION GAP 11 (8-16); BLOOD UREA NITROGEN 11 MG/DL (7-18); BUN/CREATININE RATIO 11.8 (6.6-38.0); CALCIUM 8.5 MG/DL (8.5-10.1); CHLORIDE 107 MMOL/L (99-107); CREATININE 0.93 MG/DL (0.40-0.90); GLUCOSE 245 MG/DL (70-104); MAGNESIUM 2.5 MG/DL (1.5-2.4); PHOSPHORUS 2.7 MG/DL (2.3-4.5); POTASSIUM 3.6 MMOL/L (3.5-5.1); SODIUM 142 MMOL/L (135-145); TOTAL CARBON DIOXIDE 23.9 MMOL/L (24-32); eGFR 60 ML/MIN
--- NOTE | 2019-03-17 18:30 | NUR ---
Patient in room CICU 2008. I have received report from Marianne SARABIA and had the opportunity to ask questions and assume patient care. Pt restless, sitting up in bed, pulling at restraints, biting down on ETT tube, attempting to cough out tube. Desats to 87% when biting on tube. Morphine administered for pain. FiO2 increased from 70% to 75%. Sats increased to 94%.
[2019-03-17] MEDS: ipratropium/albuterol 3ml nebule NEB SCH ×2 (19:20→23:08)
[2019-03-17] MEDS: docusate sod 100mg capsule PO SCH (20:00)
[2019-03-17] MEDS: mupirocin 2% nasal ointment 1gm UD NS SCH (20:19)
[2019-03-17] MEDS: vancomycin/NS 1 GM ADD-VANTAGE 250 ML IV SCH (20:19)
[2019-03-17] MEDS: amitriptyline 25mg tablet PO SCH (20:19)
--- NOTE | 2019-03-17 20:19 | NUR ---
Pt awakens abruptly, sits forward, slides down in bed, pulls at restraints, bites down on ETT and attempts to dislodge with tongue. Attempts to cough out ETT tube. Desats, FiO2 increased to 80%. Verbal reassurances given. Morphine given for pain of 7/10 per non verbal pain scale. Gabapentin and Elavil given via OG. Monitoring closely.
[2019-03-17] MEDS ORDERED: propofol 1000mg/100ml bottle 100 ML IV ONE (20:58)
[2019-03-17 21:30] LABS: ABG BASE EXCESS -3.2 mmol/L (-2.0-3.0); ABG HCO3 21.7 mmol/L (22.0-26.0); ABG OXYGEN SATURATION 95.8 % (95-98); ABG PCO2 (T) 39.6 mmHg (32.0-45.0); ABG PO2 (T) 90.4 mmHg (83-108); FCOHb 0.3 % (0.5-1.5); FMetHb 0.4 % (0.3-1.12); FO2Hb 95.1 % (94-100); MINUTE VOLUME 7 L/min; PATIENT TEMPERATURE 37.8; PEEP 10 cm H2O; RESPIRATORY RATE 12 b/min; RESPIRATORY RATE (OBSERVED) 12 b/min; TIDAL VOLUME 600 mL; TOTAL HEMOGLOBIN 12.8 G/dl (12.0-16.0)
[2019-03-17] MEDS: propofol 1000mg/100ml bottle 100 ML IV SCH (21:33)
--- NOTE | 2019-03-17 22:27 | NUR ---
2054: Pt self extubated. RT stat to bedside, bagging, Multiple staff attempting to restrain patient to prevent further self harm. ED MD to bedside for reintubation. Dr. Pleitez notified, orders received. 2100: Pt reintubated by ED Physician. ETT # 7, 22cm at lip. Lung sounds equal bilat. Tube placement verified by ER MD. 2227: Titrating sedation for patient comfort. VSS, CI@2223:2.6. Will continue to monitor.
--- NOTE | 2019-03-17 23:58 | NUR ---
Pt restless at times, titrating sedation for patient comfort. Dr. Pleitez updated. Will continue to monitor.
[2019-03-18] VITALS (24 sets, daily range): BP systolic 96–149; BP diastolic 56–77
[2019-03-18] MEDS: morphine 4 MG/ML inj SYRINge IV PRN (00:10)
[2019-03-18] MEDS: insulin Lispro (HumaLOG) vial - multi-dose SQ SCH ×3 (00:17→22:22)
[2019-03-18] MEDS: propofol 1000mg/100ml bottle 100 ML IV SCH ×2 (02:22→06:10)
[2019-03-18 03:21] LABS: ABG BASE EXCESS -2.6 mmol/L (-2.0-3.0); ABG HCO3 22.1 mmol/L (22.0-26.0); ABG OXYGEN SATURATION 97.1 % (95-98); ABG PCO2 (T) 38.9 mmHg (32.0-45.0); ABG PH (T) 7.374 (7.350-7.450); ABG PO2 (T) 100.4 mmHg (83-108); FCOHb 0.3 % (0.5-1.5); FMetHb 0.4 % (0.3-1.12); FO2Hb 96.4 % (94-100); MINUTE VOLUME 9 L/min; PATIENT TEMPERATURE 37.5; PEEP 10 cm H2O; RESPIRATORY RATE 12 b/min; RESPIRATORY RATE (OBSERVED) 15 b/min; TIDAL VOLUME 600 mL; TOTAL HEMOGLOBIN 12.6 G/dl (12.0-16.0)
[2019-03-18] MEDS: ipratropium/albuterol 3ml nebule NEB SCH ×6 (03:22→23:05)
[2019-03-18 03:39] LABS: PARTIAL THROMBOPLASTIN TIME 24 SECONDS (22-32)
[2019-03-18 03:42] LABS: ALANINE AMINOTRANSFERASE 43 U/L (12-78); ALBUMIN/GLOBULIN RATIO 0.9 (1.1-1.5); ALKALINE PHOSPHATASE 64 IU/L (46-116); ANION GAP 15 (8-16); ASPARTATE AMINO TRANSFERASE 49 U/L (10-37); BILIRUBIN,TOTAL 0.5 MG/DL (0.1-1.0); BLOOD UREA NITROGEN 10 MG/DL (7-18); BUN/CREATININE RATIO 9.6 (6.6-38.0); CALCIUM 8.1 MG/DL (8.5-10.1); CHLORIDE 108 MMOL/L (99-107); CREATININE 1.04 MG/DL (0.40-0.90); GLUCOSE 189 MG/DL (70-104); MAGNESIUM 2.2 MG/DL (1.5-2.4); PHOSPHORUS 3.3 MG/DL (2.3-4.5); POTASSIUM 3.7 MMOL/L (3.5-5.1); SODIUM 145 MMOL/L (135-145); TOTAL PROTEIN 6.2 G/DL (6.4-8.2); eGFR 53 ML/MIN
[2019-03-18 03:54] LABS: BASOPHILS # (AUTO) 0.1 X10'3 (0-0.2); BASOPHILS % (AUTO) 0.3 % (0-1); EOSINOPHILS % (AUTO) 0 % (0-6); HEMATOCRIT 34.5 % (35.0-45.0); HEMOGLOBIN 11.6 g/dl (12.0-16.0); LYMPHOCYTES # (AUTO) 1.2 X10'3 (1.1-4.8); MEAN CORPUSCULAR HEMOGLOBIN 30.5 PG (27.0-31.0); MEAN CORPUSCULAR HGB CONC 33.5 g/dL (33.0-36.5); MEAN CORPUSCULAR VOLUME 90.9 FL (78-98); MEAN PLATELET VOLUME 11.9 FL (7.4-10.4); MONOCYTES # (AUTO) 0.8 X10'3 (0-0.9); MONOCYTES % (AUTO) 3.2 % (2-12); NEUTROPHILS # (AUTO) 21.3 X10'3 (1.8-7.7); NEUTROPHILS % (AUTO) 91.5 % (42-75); PLATELET COUNT 135 X10'3 (140-440); RED BLOOD COUNT 3.79 X10'6 (4.20-5.60); RED CELL DISTRIBUTION WIDTH 14.4 % (11.5-14.5); WHITE BLOOD COUNT 23.3 X10'3 (4.5-11.0)
[2019-03-18] MEDS: potassium Cl 20mEq/100mL bag 100 ML IV PRN ×2 (04:46→11:28)
--- NOTE | 2019-03-18 06:27 | NUR ---
Patient in room CICU 2008. I have received report from Gabriella SARABIA and had the opportunity to ask questions and assume patient care.
--- NOTE | 2019-03-18 06:27 | NUR ---
Problems reprioritized. Patient report given, questions answered & plan of care reviewed with Abrahan SARABIA.
--- NOTE | 2019-03-18 07:30 | NUR ---
Daniel Sanchez PA-C rounded on patient. Made aware of extubation during the night and cloudy urine with sediment. Orders were received to start precedex drip and UA.
[2019-03-18] MEDS: ceFAZolin 1GM/D5W- ADD-VANTAGE 50 ML IV SCH ×2 (07:33→15:32)
[2019-03-18] MEDS: metoprolol tartrate 12.5mg (1/2 tablet) PO SCH ×2 (07:33→20:25)
[2019-03-18] MEDS: mupirocin 2% nasal ointment 1gm UD NS SCH ×2 (07:34→20:25)
[2019-03-18] MEDS: gabapentin 300mg capsule PO SCH ×3 (07:34→21:53)
[2019-03-18] MEDS: docusate sod 100mg capsule PO SCH ×2 (07:34→20:25)
[2019-03-18] MEDS ORDERED: aspirin 325mg tablet, delayed-release (Ecotrin) PO SCH (08:00)
[2019-03-18] MEDS: dexmedetomidin/NS 400mcg/100ml 100 ML IV SCH ×2 (08:05→18:10)
[2019-03-18] MEDS: vancomycin/NS 1 GM ADD-VANTAGE 250 ML IV SCH ×2 (08:07→20:25)
[2019-03-18 08:38] LABS: CLARITY,URINE CLOUDY (Clear); COLOR,URINE YELLOW (Yellow); GLUCOSE, URINE NEGATIVE (Neg); KETONES,URINE NEGATIVE (Neg); LEUKOCYTE ESTERASE ,URINE NEGATIVE (Neg); NITRITES, URINE NEGATIVE (Neg); OCCULT BLOOD,URINE MODERATE (Neg); PH,URINE 5.5 (4.8-8.0); PROTEIN,URINE 30 mg/dl (Neg); UROBILINOGEN,URINE 0.2 E.U/dL (0.2-1.0)
[2019-03-18 08:41] LABS: UA COLLECTION TYPE FOLEY CATH
[2019-03-18] MEDS ORDERED: HYDR-3972 PO (08:50)
[2019-03-18] MEDS ORDERED: METO25TA6 PO (08:50)
[2019-03-18] MEDS ORDERED: COL100C PO (08:50)
[2019-03-18] MEDS ORDERED: ASPI-41 PO (08:50)
[2019-03-18 08:51] LABS: LARGE PLATELETS FEW; PLATELET ESTIMATE DECREASED
[2019-03-18 08:52] LABS: RBC,URINE 20-50 /HPF (0-2); WBC,URINE 0-4 /HPF (0-4)
[2019-03-18 08:53] LABS: AMORPHOUS URATES 2+; BACTERIA,URINE NONE SEEN /HPF (Neg); MUCUS STRANDS FEW /LPF (Neg); SQUAMOUS EPITHELIAL CELL,UR NONE SEEN /LPF (FEW)
[2019-03-18 10:05] LABS: ABG BASE EXCESS -0.9 mmol/L (-2.0-3.0); ABG HCO3 22.7 mmol/L (22.0-26.0); ABG OXYGEN SATURATION 94.9 % (95-98); ABG PH (T) 7.442 (7.350-7.450); ABG PO2 (T) 74.1 mmHg (83-108); FCOHb 0.3 % (0.5-1.5); FMetHb 0.2 % (0.3-1.12); FO2Hb 94.4 % (94-100); MINUTE VOLUME 10 L/min; PEEP 10 cm H2O; RESPIRATORY RATE 12 b/min; RESPIRATORY RATE (OBSERVED) 12 b/min; TIDAL VOLUME 600 mL; TOTAL HEMOGLOBIN 11.2 G/dl (12.0-16.0)
--- NOTE | 2019-03-18 10:15 | NUR ---
Dr. Pleitez contacted by telephone. Made aware of most recent ABGs, intolerance to precedex due to hypotension and the resuming of propofol for sedation. Dr. Pleitez ordered weaning to continue. Currently at 40% FiO2. Ordered to continue to lower Peep from 10 and recheck ABGs at 12.
[2019-03-18 12:11] LABS: ABG BASE EXCESS -0.4 mmol/L (-2.0-3.0); ABG HCO3 22.7 mmol/L (22.0-26.0); ABG OXYGEN SATURATION 94.6 % (95-98); ABG PCO2 (T) 32.3 mmHg (32.0-45.0); ABG PH (T) 7.465 (7.350-7.450); ABG PO2 (T) 71.5 mmHg (83-108); FCOHb 0.3 % (0.5-1.5); FMetHb 0.2 % (0.3-1.12); FO2Hb 94.1 % (94-100); MINUTE VOLUME 8 L/min; PEEP 8 cm H2O; RESPIRATORY RATE 12 b/min; RESPIRATORY RATE (OBSERVED) 12 b/min; TIDAL VOLUME 600 mL; TOTAL HEMOGLOBIN 11.7 G/dl (12.0-16.0)
[2019-03-18 13:31] LABS: ABG BASE EXCESS -1.8 mmol/L (-2.0-3.0); ABG HCO3 21.9 mmol/L (22.0-26.0); ABG OXYGEN SATURATION 92.9 % (95-98); ABG PCO2 (T) 33.8 mmHg (32.0-45.0); ABG PO2 (T) 65.1 mmHg (83-108); FCOHb 0.3 % (0.5-1.5); FMetHb 0.3 % (0.3-1.12); FO2Hb 92.3 % (94-100); MINUTE VOLUME 8 L/min; PEEP 5 cm H2O; RESPIRATORY RATE (OBSERVED) 16 b/min
--- NOTE | 2019-03-18 14:30 | NUR ---
Patient extubated at 1335. Placed on 6L NC. Patient has weak cough but is able to clear secretions. Patient is drowsy and keeps falling asleep. PA line and ART line removed. Pressure dressing placed on right wrist and dressing changed on RIJ central line.
[2019-03-18] MEDS: HYDROcodone/acetaminophen 10/325mg tab PO PRN (16:39)
[2019-03-18] MEDS: magnesium hydroxide 30ml (MOM) UD suspension PO PRN (17:20)
[2019-03-18 18:04] LABS: ANION GAP 7 (8-16); BLOOD UREA NITROGEN 13 MG/DL (7-18); BUN/CREATININE RATIO 16.3 (6.6-38.0); CHLORIDE 109 MMOL/L (99-107); GLUCOSE 123 MG/DL (70-104); POTASSIUM 4.6 MMOL/L (3.5-5.1); SODIUM 143 MMOL/L (135-145); TOTAL CARBON DIOXIDE 27.3 MMOL/L (24-32); eGFR 72 ML/MIN
--- NOTE | 2019-03-18 18:11 | NUR ---
Problems reprioritized. Patient report given, questions answered & plan of care reviewed with Lazara SARABIA.
--- NOTE | 2019-03-18 18:15 | NUR ---
[facility] I have received report from Garcia SARABIA and had the opportunity to ask questions and assume patient care. Patient resting in bed with eyes closed, in no apparent distress. HIR in high 100s in sinus tachycardia. BP 128/71 via automatic BP cuff. Respirations at 22 Addendum: 03/18/19 at 1824 by Lazara Cao RN CONT: Respirations at 22 breaths/min and saturating 93% on 2L NC. Will continue to monitor patient.
[2019-03-18] MEDS: lactobacillus rhamnosus 10,000 MMU CELLS/CAPSULE PO SCH (20:25)
[2019-03-18] MEDS: amitriptyline 25mg tablet PO SCH (20:25)
[2019-03-18] MEDS: insulin regular, human 100 UNIT in normal saline 100ml IV soln 100 ML IV SCH ×2 (20:44)
[2019-03-19] VITALS (17 sets, daily range): BP systolic 115–142; BP diastolic 54–76
[2019-03-19] MEDS: ceFAZolin 1GM/D5W- ADD-VANTAGE 50 ML IV SCH (00:20)
--- NOTE | 2019-03-19 01:27 | NUR ---
Attempted to instruct patient to use IS, patient having difficult time following directions. Instructed patient to inhale through IS, patient attempts to exhale even after multiple instructions to inhale. Patient able to use flutter valve correctly with adequate induced cough. Patient needs frequent reminders to splint with pillow when coughing. Will continue to encourage IS use and to provide education regarding coughing/deep breathing and sternal precautions.
[2019-03-19 03:06] LABS: BASOPHILS % (AUTO) 0.2 % (0-1); EOSINOPHILS % (AUTO) 0.1 % (0-6); HEMATOCRIT 30.9 % (35.0-45.0); HEMOGLOBIN 10.4 g/dl (12.0-16.0); LYMPHOCYTES # (AUTO) 2.4 X10'3 (1.1-4.8); LYMPHOCYTES % (AUTO) 12.1 % (21-51); MEAN CORPUSCULAR HGB CONC 33.6 g/dL (33.0-36.5); MEAN CORPUSCULAR VOLUME 92.2 FL (78-98); MEAN PLATELET VOLUME 11.4 FL (7.4-10.4); MONOCYTES # (AUTO) 1.4 X10'3 (0-0.9); MONOCYTES % (AUTO) 6.9 % (2-12); NEUTROPHILS % (AUTO) 80.7 % (42-75); RED BLOOD COUNT 3.35 X10'6 (4.20-5.60); RED CELL DISTRIBUTION WIDTH 14.9 % (11.5-14.5); WHITE BLOOD COUNT 19.8 X10'3 (4.5-11.0)
[2019-03-19] MEDS: ipratropium/albuterol 3ml nebule NEB SCH ×3 (03:09→11:23)
[2019-03-19 03:17] LABS: ALBUMIN 2.9 G/DL (3.4-5.0); ANION GAP 6 (8-16); BLOOD UREA NITROGEN 12 MG/DL (7-18); BUN/CREATININE RATIO 16.9 (6.6-38.0); CALCIUM 8.1 MG/DL (8.5-10.1); CHLORIDE 108 MMOL/L (99-107); CREATININE 0.71 MG/DL (0.40-0.90); GLUCOSE 189 MG/DL (70-104); MAGNESIUM 2.2 MG/DL (1.5-2.4); PHOSPHORUS 2.3 MG/DL (2.3-4.5); POTASSIUM 4.5 MMOL/L (3.5-5.1); SODIUM 140 MMOL/L (135-145); TOTAL CARBON DIOXIDE 26.3 MMOL/L (24-32); eGFR 82 ML/MIN
[2019-03-19] MEDS: dexmedetomidin/NS 400mcg/100ml 100 ML IV SCH (04:35)
[2019-03-19 05:06] LABS: ACTIVATED CLOTTING TIME 121 SEC (101-148)
[2019-03-19 05:06] LABS: ACT @ 1.70 U 252 SEC (193-297); ACT @ 2.84 U 336 SEC (260-420); BASELINE ACT 134 SEC (101-148); PATIENT WEIGHT 86.0k KG
[2019-03-19 06:11] LABS: PLATELET COUNT 110 X10'3 (140-440)
[2019-03-19 06:13] LABS: LARGE PLATELETS FEW; PLATELET ESTIMATE DECREASED
--- NOTE | 2019-03-19 06:30 | NUR ---
Patient in room CICU 2008. I have received report from Lazara SARABIA and had the opportunity to ask questions and assume patient care. Patient laying in bed with eyes closed, on 2L NC sating 93%, vital signs stable no signs of distress will continue to monitor
--- NOTE | 2019-03-19 06:34 | NUR ---
Problems reprioritized. Patient report given, questions answered & plan of care reviewed with Rosita SARABIA.
--- NOTE | 2019-03-19 07:00 | NUR ---
Dr. Pleitez in to see patient, he removed the Chest tube with not issues, dressing applied, stated to d/c central line as long as she has a working IV, he will update orders for her to transfer to [facility]
[2019-03-19] MEDS ORDERED: potassium Cl 20 mEq SR tablet PO PRN ×2 (07:05)
[2019-03-19] MEDS ORDERED: furosemide 40mg/4ml inj IV ONE ×2 (07:05→12:58)
[2019-03-19] MEDS ORDERED: magnesium 4gm in 100ml NS 100 ML IV PRN (07:05)
[2019-03-19] MEDS ORDERED: magnesium Cl slow-release 64mg tablet PO PRN (07:05)
[2019-03-19] MEDS ORDERED: potassium CL 10mEq/100ml bag 100 ML IV PRN ×2 (07:05)
[2019-03-19] MEDS ORDERED: magnesium 2GM in 50ml NS 50 ML IV PRN (07:05)
[2019-03-19] MEDS: pantoprazole 40mg Tablet.DR PO SCH (07:12)
[2019-03-19] MEDS: HYDROcodone/acetaminophen 10/325mg tab PO PRN (07:12)
[2019-03-19] MEDS: magnesium Cl slow-release 64mg tablet PO SCH ×2 (08:00→20:09)
[2019-03-19] MEDS: potassium Cl 20 mEq SR tablet PO SCH ×2 (08:00→20:00)
[2019-03-19] MEDS ORDERED: glucagon, human recombinant 1mg kit SUBCUT PRN (08:05)
[2019-03-19] MEDS ORDERED: dextrose ORAL solution 15 GM/59 ML bottle PO PRN ×2 (08:05)
[2019-03-19] MEDS ORDERED: MESSAGE TO PHARMACY PO ONE (08:05)
[2019-03-19] MEDS ORDERED: dextrose 50%-water 50ml dispensing syringe IV PRN (08:05)
[2019-03-19] MEDS: lactobacillus rhamnosus 10,000 MMU CELLS/CAPSULE PO SCH ×2 (08:19→20:05)
[2019-03-19] MEDS: gabapentin 300mg capsule PO SCH (08:19)
[2019-03-19] MEDS: aspirin 81mg tablet.DR PO SCH (08:19)
[2019-03-19] MEDS: mupirocin 2% nasal ointment 1gm UD NS SCH (08:19)
[2019-03-19] MEDS: docusate sod 100mg capsule PO SCH ×2 (08:20→20:10)
[2019-03-19] MEDS: metoprolol tartrate 50mg tablet PO SCH ×2 (08:20→20:08)
[2019-03-19] MEDS: K and/or MAG REPLACEMENT MC SCH (08:23)
--- NOTE | 2019-03-19 11:05 | NUR ---
Central line d/yamile canula intact, manual pressure held, patient tolerated well, clear occlusive dressing applied
--- NOTE | 2019-03-19 12:08 | NUR ---
D/c'ed joya cath, cannula intact, patient tolerated well, no complaints of irritation or pain from patient
--- NOTE | 2019-03-19 12:26 | NUR ---
Called [facility] Alejo gave report all questions answered
[2019-03-19] MEDS ORDERED: rocuronium 10mg/ml inj IV ONE (12:32)
[2019-03-19] MEDS ORDERED: etomidate 2mg/ml inj. IV ONE (12:36)
[2019-03-19] MEDS ORDERED: nitroGLYCERIN in D5W 50mg/250ml (Tridil) infusion IV ONE (12:52)
[2019-03-19] MEDS ORDERED: heparin, porcine-25,000 units/D5-250ml premix IV ONE (12:53)
[2019-03-19] MEDS ORDERED: albumin (human) 25% 100 ML IV solution IV ONE (12:56)
[2019-03-19] MEDS ORDERED: aminocaproic acid 250 MG/1 ML inj. IV ONE (12:57)
[2019-03-19] MEDS ORDERED: calcium chloride 100 MG/1 ML inj IV ONE (12:58)
[2019-03-19] MEDS ORDERED: heparin 10,000 units/1 ML INJ IV ONE (13:00)
[2019-03-19] MEDS ORDERED: LIDOcaine 2% (20mg/ml) 5ml vial IV ONE (13:02)
[2019-03-19] MEDS ORDERED: MAGNESIUM SULFATE IV ONE (13:03)
[2019-03-19] MEDS ORDERED: WATER IV ONE (13:03)
[2019-03-19] MEDS ORDERED: methylPREDNISolone sod. succ. 500mg inj IV ONE (13:04)
[2019-03-19] MEDS ORDERED: phenylephrine 10mg/ml inj. IV ONE (13:05)
[2019-03-19] MEDS ORDERED: sodium bicarbonate (8.4%) 1 mEq/ml syringe IV ONE (13:06)
[2019-03-19] MEDS ORDERED: potassium acetate 2 mEq/1ml inj. IV ONE (13:10)
--- NOTE | 2019-03-19 15:06 | NUR ---
Pt. noted to be fatigued and drowsy when she worked with physical therapy. I did note her being a little lethargic when we took her lunch tray in to her. I checked blood glucose which showed a little over 200. Pt. did answer my questions correctly.
[2019-03-19] MEDS: JUVEN Shake w/Arg/Glut/Ca2+Bmb (Juven 19.3gm) pkt 240ml PO SCH (18:00)
--- NOTE | 2019-03-19 18:00 | NUR ---
Patient in room MED 315. I have received report from Melo SARABIA and had the opportunity to ask questions and assume patient care.
--- NOTE | 2019-03-19 18:25 | NUR ---
Problems reprioritized. Patient report given, questions answered & plan of care reviewed with Cristine SARABIA and Herminia SARABIA.
--- NOTE | 2019-03-19 18:27 | NUR ---
Orienteer documentation: I have reviewed and agree with all interventions, assessments performed and documented by Kiki SARABIA.
--- NOTE | 2019-03-19 18:30 | NUR ---
Patient in room MED 315. I have received report from CORNELL Alejo and had the opportunity to ask questions and assume patient care.
--- NOTE | 2019-03-19 19:00 | NUR ---
patient impulsive, unsteady on feet, concerned for safety, will remain in line of sight throughout shift for safety
--- NOTE | 2019-03-19 20:00 | NUR ---
related to sepsis screening, patient heart rate no greater than 110, patient respirations at times greater than 20, WBC is greater than >12,000, but trending downward from 24,000 to 19,000. will continue to monitor. Addendum: 03/20/19 at 0522 by Herminia Cota RN Amended: Links added.
--- NOTE | 2019-03-19 20:00 | NUR ---
during course of patient assessment, patient notably obtunded, sluggish and answering questions inappropriately. Will continue to monitor for safety. Patient ate nothing for dinner, Blood Glucose continues to be above 200, no insulin given per instructions from Madison SARABIA. Patient's mentation continues to be a concern, will continue to monitor closely for any changes, deterioration or improvement.
[2019-03-19] MEDS: amitriptyline 25mg tablet PO SCH (20:19)
[2019-03-19] MEDS: insulin glargine (Lantus) pen - multi-dose SQ SCH (21:00)
[2019-03-20 02:00] VITALS: BP 140/76
--- NOTE | 2019-03-20 02:58 | NUR ---
Patient in room MED 315. I have received report from Melo SARABIA and had the opportunity to ask questions and assume patient care. Addendum: 03/20/19 at 0610 by Herminia Cota RN wrong time, received report from Melo SARABIA on 03/19/19 at 1800 Patient in room MED 315. I have received report from Melo SARABIA and had the opportunity to ask questions and assume patient care.
[2019-03-20 05:14] LABS: BASOPHILS # (AUTO) 0.1 X10'3 (0-0.2); BASOPHILS % (AUTO) 0.6 % (0-1); EOSINOPHILS # (AUTO) 0.2 X10'3 (0-0.9); EOSINOPHILS % (AUTO) 1.2 % (0-6); HEMATOCRIT 32.8 % (35.0-45.0); HEMOGLOBIN 10.9 g/dl (12.0-16.0); LYMPHOCYTES % (AUTO) 12.6 % (21-51); MEAN CORPUSCULAR HEMOGLOBIN 30.5 PG (27.0-31.0); MEAN CORPUSCULAR HGB CONC 33.2 g/dL (33.0-36.5); MEAN CORPUSCULAR VOLUME 91.9 FL (78-98); MEAN PLATELET VOLUME 11.1 FL (7.4-10.4); MONOCYTES # (AUTO) 1.2 X10'3 (0-0.9); MONOCYTES % (AUTO) 7.2 % (2-12); NEUTROPHILS # (AUTO) 12.7 X10'3 (1.8-7.7); NEUTROPHILS % (AUTO) 78.4 % (42-75); PLATELET COUNT 108 X10'3 (140-440); RED BLOOD COUNT 3.57 X10'6 (4.20-5.60); RED CELL DISTRIBUTION WIDTH 14.3 % (11.5-14.5); WHITE BLOOD COUNT 16.2 X10'3 (4.5-11.0)
--- NOTE | 2019-03-20 05:27 | NUR ---
Patient had not eaten and mentation not been well. Patient has been somewhat confused throughout the shift. During shift change CORNELL Alejo shared that the patient had been this way with him and he chose not to cover with insulin. I did not feel comfortable initiating the insulin because I was unsure of her baseline. Patient blood glucose was at 212 at 2100 check this was after staff convinced her to eat a peanut butter and jelly sandwich. I will pass this information on to the dayshift.
--- NOTE | 2019-03-20 05:33 | NUR ---
Orienteer documentation: I have reviewed and agree with all interventions, assessments performed and documented by CORNELL Hope. Orienteer Medication Administration: For this medication-pass time frame, all medication were reviewed, dispensed, administered and documented per hospital policy by CORNELL Hope.
[2019-03-20 05:38] LABS: ALBUMIN 2.8 G/DL (3.4-5.0); ANION GAP 15 (8-16); BLOOD UREA NITROGEN 11 MG/DL (7-18); CALCIUM 8.4 MG/DL (8.5-10.1); CHLORIDE 104 MMOL/L (99-107); CREATININE 0.55 MG/DL (0.40-0.90); GLUCOSE 221 MG/DL (70-104); MAGNESIUM 1.8 MG/DL (1.5-2.4); SODIUM 140 MMOL/L (135-145); TOTAL CARBON DIOXIDE 21.4 MMOL/L (24-32); eGFR > 90 ML/MIN
[2019-03-20 06:00] VITALS: BP 157/77
--- NOTE | 2019-03-20 06:26 | NUR ---
Problems reprioritized. Patient report given, questions answered & plan of care reviewed with CORNELL Alejo.
--- NOTE | 2019-03-20 06:38 | NUR ---
Patient in room MED 315. I have received report from Madison and had the opportunity to ask questions and assume patient care.
[2019-03-20] MEDS: magnesium Cl slow-release 64mg tablet PO SCH ×2 (07:41→19:30)
[2019-03-20] MEDS: pantoprazole 40mg Tablet.DR PO SCH (07:43)
[2019-03-20] MEDS: metoprolol tartrate 50mg tablet PO SCH (07:44)
[2019-03-20] MEDS: aspirin 81mg tablet.DR PO SCH (07:44)
[2019-03-20] MEDS: docusate sod 100mg capsule PO SCH ×2 (07:44→19:35)
[2019-03-20] MEDS: potassium Cl 20 mEq SR tablet PO SCH ×2 (07:45→19:35)
[2019-03-20] MEDS: lactobacillus rhamnosus 10,000 MMU CELLS/CAPSULE PO SCH ×2 (07:45→19:30)
[2019-03-20] MEDS: magnesium hydroxide 30ml (MOM) UD suspension PO PRN (07:48)
[2019-03-20] MEDS: JUVEN Shake w/Arg/Glut/Ca2+Bmb (Juven 19.3gm) pkt 240ml PO SCH ×3 (08:00→18:00)
[2019-03-20] MEDS: K and/or MAG REPLACEMENT MC SCH (08:00)
[2019-03-20] MEDS: insulin Lispro (HumaLOG) vial - multi-dose SQ SCH ×3 (08:08→19:35)
[2019-03-20] MEDS: HYDROchlorothiazide 25mg tablet PO SCH (08:40)
[2019-03-20] MEDS: insulin glargine (Lantus) pen - multi-dose SQ SCH ×3 (08:44→21:30)
[2019-03-20 11:00] VITALS: BP 130/67
--- NOTE | 2019-03-20 11:42 | NUR ---
F/u: Pt requesting ONS given low PO 0-25% meals post-op. No BM 5 days prior which resolved this AM per RN. Likely also effected appetite. Ensure high protein TIDWM added for wound healing needs post-op. Pending MD verification of ONS prior to sending on tray; RN notified. Pt receiving colace and MoM today. Will continue to monitor for additional protein needs post-op. Recommendations: 1) Continues heart healthy CHO controlled diet 2) ensure high protein TIDWM; pending MD verification 3) Antihyperlipidemic per MD approval given elevated lipid panel 4) Wt per rx Addendum: 03/20/19 at [address] Amended: Links added.
--- NOTE | 2019-03-20 12:00 | NUR ---
Patient in room MED 315. I have received report from Melo SARABIA and had the opportunity to ask questions and assume patient care.
[2019-03-20] MEDS: lactose-reduced food (Ensure High Protein) 237ml bottle PO SCH ×2 (13:50→18:00)
[2019-03-20 15:24] VITALS: BP 142/80
[2019-03-20 18:00] VITALS: BP 144/68
--- NOTE | 2019-03-20 18:21 | NUR ---
Orientee documentation: I have reviewed and agree with all interventions, assessments performed and documented by Maeve SARABIA. Orientee Medication Administration: For this medication-pass time frame, all medication were reviewed, dispensed, administered and documented per hospital policy by Maeve SARABIA.
--- NOTE | 2019-03-20 18:22 | NUR ---
Patient in room MED 315. I have received report from Effie SARABIA and had the opportunity to ask questions and assume patient care.
--- NOTE | 2019-03-20 18:23 | NUR ---
Problems reprioritized. Patient report given, questions answered & plan of care reviewed with CORNELL Hope.
[2019-03-20] MEDS: metoprolol tartrate 25mg tablet PO SCH (19:32)
[2019-03-20 20:10] LABS: CLARITY,URINE CLEAR (Clear); COLOR,URINE YELLOW (Yellow); GLUCOSE, URINE 250 mg/dl (Neg); KETONES,URINE >=80 mg/dl (Neg); LEUKOCYTE ESTERASE ,URINE NEGATIVE (Neg); NITRITES, URINE NEGATIVE (Neg); OCCULT BLOOD,URINE TRACE-LYSED (Neg); PROTEIN,URINE NEGATIVE (Neg); UROBILINOGEN,URINE 0.2 E.U/dL (0.2-1.0)
[2019-03-20 20:12] LABS: UA COLLECTION TYPE NON-SPECIFIED
[2019-03-20 20:18] LABS: BACTERIA,URINE NONE SEEN /HPF (Neg); MUCUS STRANDS NONE SEEN /LPF (Neg); RBC,URINE NONE SEEN /HPF (0-2); SQUAMOUS EPITHELIAL CELL,UR NONE SEEN /LPF (FEW); WBC,URINE 0-4 /HPF (0-4)
[2019-03-20] MEDS ORDERED: losartan 25mg tablet PO SCH (21:00)
[2019-03-20] MEDS: losartan 25mg tablet PO SCH (21:32)
[2019-03-20] MEDS: amitriptyline 25mg tablet PO SCH (21:33)
[2019-03-20 22:00] VITALS: BP 158/76
[2019-03-21 02:00] VITALS: BP 125/61
[2019-03-21 05:37] LABS: BASOPHILS # (AUTO) 0.1 X10'3 (0-0.2); BASOPHILS % (AUTO) 0.4 % (0-1); EOSINOPHILS # (AUTO) 0.4 X10'3 (0-0.9); EOSINOPHILS % (AUTO) 3.1 % (0-6); HEMATOCRIT 35.9 % (35.0-45.0); HEMOGLOBIN 11.8 g/dl (12.0-16.0); LYMPHOCYTES # (AUTO) 2.4 X10'3 (1.1-4.8); LYMPHOCYTES % (AUTO) 17.1 % (21-51); MEAN CORPUSCULAR HEMOGLOBIN 30.2 PG (27.0-31.0); MEAN CORPUSCULAR VOLUME 91.5 FL (78-98); MONOCYTES # (AUTO) 1.2 X10'3 (0-0.9); MONOCYTES % (AUTO) 8.2 % (2-12); NEUTROPHILS # (AUTO) 10.1 X10'3 (1.8-7.7); NEUTROPHILS % (AUTO) 71.2 % (42-75); PLATELET COUNT 169 X10'3 (140-440); RED BLOOD COUNT 3.92 X10'6 (4.20-5.60); RED CELL DISTRIBUTION WIDTH 14.1 % (11.5-14.5); WHITE BLOOD COUNT 14.3 X10'3 (4.5-11.0)
[2019-03-21 05:49] LABS: ALBUMIN 2.8 G/DL (3.4-5.0); ANION GAP 14 (8-16); BLOOD UREA NITROGEN 7 MG/DL (7-18); BUN/CREATININE RATIO 12.7 (6.6-38.0); CALCIUM 8.9 MG/DL (8.5-10.1); CHLORIDE 99 MMOL/L (99-107); CREATININE 0.55 MG/DL (0.40-0.90); GLUCOSE 170 MG/DL (70-104); MAGNESIUM 1.7 MG/DL (1.5-2.4); POTASSIUM 3.1 MMOL/L (3.5-5.1); SODIUM 138 MMOL/L (135-145); TOTAL CARBON DIOXIDE 24.9 MMOL/L (24-32); eGFR > 90 ML/MIN
--- NOTE | 2019-03-21 06:23 | NUR ---
Orienteer documentation: I have reviewed and agree with all interventions, assessments performed and documented by CORNELL Hope . Orienteer Medication Administration: For this medication-pass time frame, all medication were reviewed, dispensed, administered and documented per hospital policy by CORNELL Hope.
[2019-03-21] MEDS ORDERED: potassium Cl 20mEq/100mL bag 100 ML IV PRN (06:45)
[2019-03-21] MEDS ORDERED: magnesium 2GM in 50ml NS 50 ML IV PRN (06:55)
--- NOTE | 2019-03-21 06:55 | NUR ---
Patient in room MED 315. I have received report from CORNELL Hope and had the opportunity to ask questions and assume patient care.
[2019-03-21 07:01] VITALS: BP 123/67
[2019-03-21] MEDS: potassium Cl 20 mEq SR tablet PO SCH ×2 (07:21→20:18)
[2019-03-21] MEDS: pantoprazole 40mg Tablet.DR PO SCH (07:21)
[2019-03-21] MEDS: potassium Cl 20 mEq SR tablet PO PRN ×2 (07:22→18:24)
[2019-03-21] MEDS: magnesium Cl slow-release 64mg tablet PO SCH ×2 (07:25→20:16)
[2019-03-21] MEDS: aspirin 81mg tablet.DR PO SCH (07:25)
[2019-03-21] MEDS: lactobacillus rhamnosus 10,000 MMU CELLS/CAPSULE PO SCH ×2 (07:25→20:16)
[2019-03-21] MEDS: HYDROchlorothiazide 25mg tablet PO SCH (07:25)
[2019-03-21] MEDS: metoprolol tartrate 25mg tablet PO SCH ×2 (07:26→21:08)
[2019-03-21] MEDS: docusate sod 100mg capsule PO SCH ×2 (07:33→20:19)
[2019-03-21] MEDS: insulin glargine (Lantus) pen - multi-dose SQ SCH ×3 (07:44→21:07)
[2019-03-21] MEDS: lactose-reduced food (Ensure High Protein) 237ml bottle PO SCH ×3 (08:00→18:00)
[2019-03-21] MEDS: insulin Lispro (HumaLOG) vial - multi-dose SQ SCH ×3 (09:30→20:11)
[2019-03-21] MEDS: magnesium 4gm in 100ml NS 100 ML IV PRN (09:47)
[2019-03-21 09:50] LABS: TOTAL CELLS COUNTED 100
[2019-03-21 09:51] LABS: LARGE PLATELETS FEW; PLATELET ESTIMATE NORMAL; POLYCHROMASIA FEW
[2019-03-21 11:00] VITALS: BP 118/71
--- NOTE | 2019-03-21 11:16 | NUR ---
Wound care POC. Received referral to help troubleshoot [place] to sternum. Arrived at bedside and pt gave informed verbal consent for tx. Trimmed and patched area of dressing that was compromised under left breast. Vac reset and no issues noted.
[2019-03-21 15:00] VITALS: BP 108/58
--- NOTE | 2019-03-21 17:53 | NUR ---
Orienteer documentation: I have reviewed and agree with all interventions, assessments performed and documented by Kiki SARABIA.
--- NOTE | 2019-03-21 18:38 | NUR ---
Problems reprioritized. Patient report given, questions answered & plan of care reviewed with CORNELL Kothari.
[2019-03-21 19:00] VITALS: BP 119/67
--- NOTE | 2019-03-21 19:13 | NUR ---
Patient in room MED 315. I have received report from Kiki SARABIA and had the opportunity to ask questions and assume patient care. Patient resting in bed, has no immediate needs. Will continue to monitor.
[2019-03-21] MEDS: losartan 25mg tablet PO SCH (20:17)
[2019-03-21] MEDS: amitriptyline 25mg tablet PO SCH (20:18)
[2019-03-21 23:00] VITALS: BP 108/41
[2019-03-22 04:59] LABS: BASOPHILS # (AUTO) 0.1 X10'3 (0-0.2); BASOPHILS % (AUTO) 0.9 % (0-1); EOSINOPHILS # (AUTO) 0.5 X10'3 (0-0.9); EOSINOPHILS % (AUTO) 3.4 % (0-6); HEMATOCRIT 35.6 % (35.0-45.0); LYMPHOCYTES # (AUTO) 2.6 X10'3 (1.1-4.8); LYMPHOCYTES % (AUTO) 17.6 % (21-51); MEAN CORPUSCULAR HEMOGLOBIN 30.6 PG (27.0-31.0); MEAN CORPUSCULAR HGB CONC 33.5 g/dL (33.0-36.5); MEAN CORPUSCULAR VOLUME 91.2 FL (78-98); MEAN PLATELET VOLUME 11.3 FL (7.4-10.4); MONOCYTES # (AUTO) 1.5 X10'3 (0-0.9); MONOCYTES % (AUTO) 10.1 % (2-12); NEUTROPHILS # (AUTO) 9.9 X10'3 (1.8-7.7); PLATELET COUNT 203 X10'3 (140-440); RED BLOOD COUNT 3.91 X10'6 (4.20-5.60); RED CELL DISTRIBUTION WIDTH 14.3 % (11.5-14.5); WHITE BLOOD COUNT 14.5 X10'3 (4.5-11.0)
[2019-03-22 05:06] LABS: ALBUMIN 2.6 G/DL (3.4-5.0); ANION GAP 10 (8-16); BLOOD UREA NITROGEN 14 MG/DL (7-18); BUN/CREATININE RATIO 23.3 (6.6-38.0); CALCIUM 8.9 MG/DL (8.5-10.1); CHLORIDE 103 MMOL/L (99-107); GLUCOSE 191 MG/DL (70-104); MAGNESIUM 1.9 MG/DL (1.5-2.4); POTASSIUM 3.7 MMOL/L (3.5-5.1); SODIUM 138 MMOL/L (135-145); eGFR > 90 ML/MIN
[2019-03-22 05:59] LABS: LARGE PLATELETS FEW; PLATELET ESTIMATE NORMAL
--- NOTE | 2019-03-22 06:11 | NUR ---
Problems reprioritized. Patient report given, questions answered & plan of care reviewed with Kim SARABIA.
--- NOTE | 2019-03-22 06:19 | NUR ---
Patient in room MED 315. I have received report from Mando and had the opportunity to ask questions and assume patient care. Addendum: 03/22/19 at 0621 by Kim Choudhary RN Report from
[2019-03-22 06:30] VITALS: BP 100/48
[2019-03-22] MEDS: lactobacillus rhamnosus 10,000 MMU CELLS/CAPSULE PO SCH (07:35)
[2019-03-22] MEDS: potassium Cl 20 mEq SR tablet PO SCH (07:35)
[2019-03-22] MEDS: metoprolol tartrate 25mg tablet PO SCH (07:35)
[2019-03-22] MEDS: aspirin 81mg tablet.DR PO SCH (07:35)
[2019-03-22] MEDS: pantoprazole 40mg Tablet.DR PO SCH (07:35)
[2019-03-22] MEDS: HYDROchlorothiazide 25mg tablet PO SCH (07:35)
[2019-03-22] MEDS: docusate sod 100mg capsule PO SCH (07:35)
[2019-03-22] MEDS: magnesium Cl slow-release 64mg tablet PO SCH (07:35)
[2019-03-22] MEDS: lactose-reduced food (Ensure High Protein) 237ml bottle PO SCH ×2 (07:36→12:48)
[2019-03-22] MEDS: insulin Lispro (HumaLOG) vial - multi-dose SQ SCH ×2 (07:52→12:53)
[2019-03-22] MEDS: insulin glargine (Lantus) pen - multi-dose SQ SCH (07:53)
[2019-03-22] MEDS: potassium Cl 20 mEq SR tablet PO PRN (10:26)
[2019-03-22] MEDS: magnesium 4gm in 100ml NS 100 ML IV PRN (10:57)
[2019-03-22 11:00] VITALS: BP 123/56
--- NOTE | 2019-03-22 13:27 | NUR ---
Report called to Kim at [facility]. supervisor looping time 1430, pt aware.
--- NOTE | 2019-03-22 14:38 | NUR ---
Pt discharged to [facility] with all personal belongings. Left via [employer] with family.
== END 2019-03-22 14:33 | DRG 233 ==
LOC: ER 02:40 → PCU 3S 04:57 → CMPBEDREQ 05:24 → MED 3N 21:12 → CICU 2S 03-17 11:12 → MED 3N 03-19 13:00
PROVIDERS: ADMIT Family Medicine; ATTEND Thoracic Surgery (Cardiothoracic Vascular Surgery)
PROC: 4A023N7 Measurement of Cardiac Sampling and Pressure, Left Heart, Percutaneous Approach (ICD-10-PCS; 2019-03-16)
PROC: B2111ZZ Fluoroscopy of Multiple Coronary Arteries using Low Osmolar Contrast (ICD-10-PCS; 2019-03-16)
PROC: 02100Z9 Bypass Coronary Artery, One Artery from Left Internal Mammary, Open Approach (ICD-10-PCS; 2019-03-17)
PROC: 021209W Bypass Coronary Artery, Three Arteries from Aorta with Autologous Venous Tissue, Open Approach (ICD-10-PCS; 2019-03-17)
PROC: 06BP4ZZ Excision of Right Saphenous Vein, Percutaneous Endoscopic Approach (ICD-10-PCS; 2019-03-17)
PROC: 4A133B3 Monitoring of Arterial Pressure, Pulmonary, Percutaneous Approach (ICD-10-PCS; 2019-03-17)
PROC: 4A1239Z Monitoring of Cardiac Output, Percutaneous Approach (ICD-10-PCS; 2019-03-17)
PROC: 02HV33Z Insertion of Infusion Device into Superior Vena Cava, Percutaneous Approach (ICD-10-PCS; 2019-03-17)
PROC: B548ZZA Ultrasonography of Superior Vena Cava, Guidance (ICD-10-PCS; 2019-03-17)
PROC: B24BZZ4 Ultrasonography of Heart with Aorta, Transesophageal (ICD-10-PCS; 2019-03-17)
PROC: 5A1221Z Performance of Cardiac Output, Continuous (ICD-10-PCS; 2019-03-17)
PROC: 02HP32Z Insertion of Monitoring Device into Pulmonary Trunk, Percutaneous Approach (ICD-10-PCS; principal; 2019-03-17 07:19)
DX: I21.4 Non-ST elevation (NSTEMI) myocardial infarction (principal); I50.21 Acute systolic (congestive) heart failure; E11.65 Type 2 diabetes mellitus with hyperglycemia; E78.00 Pure hypercholesterolemia, unspecified; E78.5 Hyperlipidemia, unspecified; R41.0 Disorientation, unspecified; I25.110 Atherosclerotic heart disease of native coronary artery with unstable angina pectoris; D72.829 Elevated white blood cell count, unspecified; I11.0 Hypertensive heart disease with heart failure; I70.0 Atherosclerosis of aorta; Z79.4 Long term (current) use of insulin; Z82.49 Family history of ischemic heart disease and other diseases of the circulatory system; I25.2 Old myocardial infarction; Z88.8 Allergy status to other drugs, medicaments and biological substances; Z79.899 Other long term (current) drug therapy; Z98.51 Tubal ligation status; Z98.891 History of uterine scar from previous surgery
CPT/HCPCS: 0232T; 93312; 93325; 93458; 96365; 96375; 99291; 36415; 36600; 71045; 80048; 80053; 80061; 81001; 82330; 82435; 82550; 82803; 82947; 82948; 83036; 83735; 84100; 84132; 84295; 84484; 85018; 85025; 85347; 85384; 85610; 85730; 86885; 86900; 86901; 86920; 87070; 87081; 92508; 92616; 93005; 93308; 93880; 93970; 94003; 94060; 94640; 94667; 94668; 94760; 97110; 97116; 97162; 97530; 99152; A4618; A6258; A6402; A6449; A7000; A7048; C1713; C1751; C1760; C1769; G0378; J0131; J0690; J1265; J1644; J1815; J1940; J2001; J2060; J2150; J2250; J2270; J2370; J2405; J2440; J2704; J2720; J2795; J2930; J3010; J3246; J3370; J3475; J3480; J3490; J7030; J7040; J7050; J7060; J7120; P9045; P9047; Q9967